=== PATIENT | male | born 1995 | race Caucasian/White ===

== ENCOUNTER 2017-11-18 23:37 | Outpatient (CLI) | payer OTHER | END 2017-11-18 23:38 | disposition home or self-care (01) | LOC: LAB 23:37 | PROVIDERS: ATTEND Pathology Blood Banking & Transfusion Medicine | DX: Z01.89 Encounter for other specified special examinations (principal) | CPT/HCPCS: 36415 ==

== ENCOUNTER 2018-10-28 16:20 | Outpatient (CLI) | payer OTHER | END 2018-10-28 16:21 | disposition EMS.NT | LOC: EMS 16:20 | PROVIDERS: ATTEND Surgery | DX: Z03.89 Encounter for observation for other suspected diseases and conditions ruled out (principal) ==

== ENCOUNTER 2019-12-19 08:45 | Emergency (ER) | payer OTHER, MEDICAID ==
[2019-12-19 08:58] VITALS: BP 132/72
--- NOTE | 2019-12-19 09:25 | ED Physician Documentation ---
PD HPI HEENT - Stated complaint Stated Complaint: DENTAL PX - Chief complaint Chief Complaint: General - History obtained from History obtained from: Patient - History of Present Illness Timing - onset: How many weeks ago (4) Timing - duration: Weeks (4) Timing - details: Gradual onset, Still present Improves: Medication Worsens: Everything Associated symptoms: Fever. No: Congestion, Rhinorrhea, Trismus, Unable to swallow, Swollen nodes, Facial swelling, Headache, Cough Similar symptoms before: Has not had sx before Recently seen: Not recently seen - Additional information Additional information: Previously well 24-year-old male has developed pain in the right lower molar and this is progressed over the past 4 to 6 weeks and last night he is developed a fever associated with this and the pain is become intolerable. He has not been able to get into see a dentist and he comes in now to the emergency department for evaluation. He has not had this happen to him previously. Review of Systems Constitutional: reports: Fever Eyes: denies: Decreased vision Ears: denies: Ear pain Nose: denies: Rhinorrhea / runny nose, Congestion Throat: reports: Dental pain / toothache Cardiac: denies: Chest pain / pressure, Palpitations Respiratory: denies: Dyspnea, Cough GI: denies: Nausea, Vomiting, Diarrhea Skin: denies: Rash Neurologic: denies: Generalized weakness, Focal weakness, Numbness PD PAST MEDICAL HISTORY - Past Surgical History Past Surgical History: No - Present Medications Home Medications: Ambulatory Orders Medication Instructions Recorded Confirmed Ibuprofen [Motrin] 800 mg PO Q8H PRN #30 tablet 01/23/16 Amoxicillin 875 mg PO BID #14 tablet 12/19/19 Hydrocodone/Acetaminophen 1 - 2 each PO Q6H PRN #14 tablet 12/19/19 [Hydrocodon-Acetaminophen 5-325] - Allergies Allergies/Adverse Reactions: Allergies Allergy/AdvReac Type Severity Reaction Status Date / Time No Known Drug Allergies Allergy Verified 12/19/19 08:58 - Social History Does the pt smoke?: Yes Smoking Status: Current every day smoker Does the pt drink ETOH?: No Does the pt have substance abuse?: No - Immunizations Immunizations are current?: Yes PD ED PE NORMAL - Vitals Vital signs reviewed: Yes (febrile and hypertensive ) - HEENT HEENT: Atraumatic, PERRL, EOMI, Other (There is a broken right lower molar second to the last that is tender to touch there is no swelling to the buccal gingival fold or fluctuance to the area there is tenderness along the jaw that is specific and reproducible. There is no drainage.) - Neck Neck: Supple, no meningeal sign - Respiratory Respiratory: No respiratory distress - Derm Derm: Normal color, Warm and dry, No rash - Extremities Extremities: No deformity, No tenderness to palpate, Normal ROM s pain, No edema - Neuro Neuro: Alert and oriented X 3, publication designer 2-12 intact, No motor deficit, No sensory deficit Eye Opening: Spontaneous Motor: Obeys Commands Verbal: Oriented GCS Score: 15 - Psych Psych: Normal mood, Normal affect Results - Vitals Vitals: Vital Signs - 24 hr 12/19/19 12/19/19 08:48 09:10 Temperature 38.9 C H 38.1 C H Heart Rate 97 Respiratory 20 Rate Blood Pressure 132/72 H O2 Saturation 99 Oxygen O2 Source Room air PD MEDICAL DECISION MAKING - ED course Complexity details: considered differential, d/w patient ED course: 24-year-old male with a broken right lower molar. We will place him on some amoxicillin and he will need a short course of pain medication as well. He is encouraged to call the dentist today to start to arrange follow-up. Departure - Departure Disposition: 01 Home, Self Care Clinical Impression: Dental abscess Condition: Stable Instructions: ED Abscess Dental Follow-Up: THEE PORTILLO, MSN, [employer] [Primary Care Provider] - Prescriptions: Amoxicillin 875 mg PO BID #14 tablet Hydrocodone/Acetaminophen [Hydrocodon-Acetaminophen 5-325] 1 - 2 each PO Q6H PRN #14 tablet PRN Reason: pain
== END 2019-12-19 09:30 | disposition home or self-care (01) ==
LOC: ED 08:45
DX: K04.7 Periapical abscess without sinus (principal); F17.200 Nicotine dependence, unspecified, uncomplicated
CPT/HCPCS: 99282; 99284